=== PATIENT | female | born 1995 | race Caucasian/White ===

== ENCOUNTER 2016-07-22 08:39 | Emergency (ER) | payer OTHER ==
--- NOTE | 2016-07-22 09:59 | EDDOCDS ---
Nurse's Notes [facility] Name: Lucie Hutchinson Age: 21 yrs Sex: Female : 1995 Arrival Date: 07/22/2016 Time: 08:39 Bed Triage 1 Private MD: Diagnosis: Acute upper respiratory infection, unspecified Presentation: 07/22 08:50 Presenting complaint: Patient states: Nasal congestion, headache, sore throat, cough, dwg bilateral ear pain, symptoms started one week ago. 08:50 Acuity: YESY Level 5 dwg 08:53 Adult Sepsis Screening: The patient does not have new or worsening altered mentation. dwg Patient's respiratory rate is less than 22. Systolic blood pressure is greater than 100. Patient has a qSOFA score of 0- Negative Sepsis Screen. Suicide/Homicide risk assessment- the patient denies having any suicidal and/or homicidal ideations and does not present with any other emotional, behavioral or mental health complaints. Status: The patient is a dependent. Transition of care: patient was not received from another setting of care. 08:53 Method Of Arrival: Walkin/Carried/Asstd dwg Triage Assessment: 08:55 General: Appears in no apparent distress, uncomfortable. Pain: Pain currently is 10 out dwg of 10 on a pain scale. 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 OTC cold meds PRN (Last dose: 07/21/2016 20:00) 2. Daily BCP - PMHx: none; - PSHx: [place] tooth extraction; - Social history: Smoking status: Patient states was never smoker of tobacco. No barriers to communication noted, The patient speaks fluent German. - Family history: No immediate family members are acutely ill. - : The pt / caregiver states he / she is not on anticoagulants. Home medication list is obtained from the patient. - Exposure Risk Screening:: None identified. Screenin:29 Screening information is obtained from the patient. Fall risk: No risks identified. dwg Assistance ADL's: requires no assistance with activities of daily living. Abuse/DV Screen: The patient / caregiver reports he/she is: not in a situation that causes fear, pain or injury. Nutritional screening: No deficits noted. Advance Directives: Currently, there is no health care proxy. There is no active DNR order. There is no living will. There is no Power of Pattern Marker. Advance directive information has not previously been placed in an [facility] medical record. Further advance directive information is declined. home support is adequate. Assessment: 09:27 General: Appears in no apparent distress. Neurological: Level of Consciousness is dwg awake, alert, Oriented to person, place, time. Respiratory: Airway is patent Respiratory effort is even, unlabored, Respiratory pattern is regular, symmetrical, Breath sounds are clear bilaterally. Vital Signs: 08:41 BP 158 / 77; Pulse 126; Resp 18; Temp 97.5(O); Pulse Ox 100% on R/A; Weight 63.5 kg ct3 (R); Height 5 ft. 2 in. (157.48 cm) (R); Pain 0/10; 08:50 Pulse 104; dwg 08:41 Body Mass Index 25.61 (63.50 kg, 157.48 cm) ct3 Vitals: 08:55 Log In Time: July 22, 2016 at 08:40. dwg 09:27 Strep Screen is obtained and tested: Negative, a GATSNEG culture is ordered in [facility] and sent. ED Course: 08:41 Patient visited by Alberto Mojica, Reg. pm4 08:41 Patient moved to Waiting pm4 08:42 Patient visited by Amy Baker PCA. ct3 08:53 Triage Initiated dwg 08:57 Patient moved to Triage 1 dwg 09:01 [facility] Ph[facility] ar2 09:01 Sonali Mccann MD is Attending Physician. ar2 09:01 Patient visited by Yao Pham PA-C. ar2 09:24 [facility] Payment Agreement was scanned into [employer] and attached to record. pm4 09:25 GATS (NEGATIVE STREP SCREEN) Sent. dwg 09:58 The patient / caregiver is instructed regarding the plan of care and ED course. dwg 09:58 No IV's were initiated during this patient's visit. No procedures done that require dwg assistance. Order Results: There are currently no results for this order. Outcome: 09:39 Discharge ordered by Provider. ar2 09:58 Discharge Assessment: Patient awake, alert and oriented x 3. No cognitive and/or dwg functional deficits noted. Patient verbalized understanding of disposition instructions. patient administered narcotics - no. The following High Risk Discharge criteria are identified: None. Discharged to home ambulatory. Condition: good Condition: stable. No special radiology studies were completed. Property sent home with patient. 09:58 Patient left the ED. dwg Signatures: Jaime Bose RN RN dwg Yao Pham PA-C PAHolly ar2 Amy Baker, MIXER WET POUR MIXER WET POUR ct3 Alberto Mojica, Reg Reg pm4 MTDD
--- NOTE | 2016-07-22 09:59 | EDDOCDS ---
Physician Documentation [facility] Name: Lucie Hutchinson Age: 21 yrs Sex: Female : 1995 Arrival Date: 07/22/2016 Time: 08:39 Bed Triage 1 Private MD: Disposition: 07/22/16 09:39 Discharged to Home/Self Care. Impression: Acute upper respiratory infection, unspecified. - Condition is Stable. - Discharge Instructions: Upper Respiratory Infection, Adult. - Prescriptions for Ibuprofen 600 mg Oral Tablet - take 1 tablet by ORAL route every 6 hours As needed take with food; 30 tablet. Mucinex 600 mg - take 1 tablet by ORAL route 2 times per day; 30 tablet. benzonatate 200 mg Oral Capsule - take 1 capsule by ORAL route 3 times per day As needed; 30 capsule. Fluticasone 50 mcg/actuation Nasal [place], Suspension - inhale 2 spray by INTRANASAL route once daily; 1 bottle. - Medication Reconciliation, Local Pharmacy Hours form. - Follow up: Private Physician; When: Call to arrange an appointment; Reason: Recheck today's complaints, To establish care. Follow up: Emergency Department; When: As needed; Reason: Fever > 102F, Trouble breathing, Worsening of conditions. - Problem is new. - Symptoms are unchanged. - Notes: recommend over the counter cepachol lozenges or chloraseptic spray for sore throat Historical: - Allergies: no known allergies; - Home Meds: 1. OTC cold meds PRN (Last dose: 07/21/2016 20:00) 2. Daily BCP - PMHx: none; - PSHx: [place] tooth extraction; - Social history: Smoking status: Patient states was never smoker of tobacco. No barriers to communication noted, The patient speaks fluent Welsh. - Family history: No immediate family members are acutely ill. - : The pt / caregiver states he / she is not on anticoagulants. Home medication list is obtained from the patient. - Exposure Risk Screening:: None identified. 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 2 in. (157.48 cm) (R); Pain 0/10; 08:50 Pulse 104; dwg 08:41 Body Mass Index 25.61 (63.50 kg, 157.48 cm) ct3 MDM: 09:06 Strep Screen, Nursing ordered. ar2 09:16 Financial registration complete. pm4 09:23 GATS (NEGATIVE STREP SCREEN) Ordered. EDMS 09:24 [facility] Payment Agreement was scanned into [employer] and attached to record. pm4 Signatures: Dispatcher [employer] EDMS Jaime Bose, RN RN dwg Yao Pham, PA-Gina PA-C ar2 Alberto Mojica, Reg Reg pm4 The chart was reviewed and I authenticate all verbal orders and agree with the evaluation and treatment provided.Attachments: 09:24 [facility] Payment Agreement pm4 MTDD
--- NOTE | 2016-07-24 11:00 | EDDOCDS ---
Physician Documentation [facility] Name: Lucie Hutchinson Age: 21 yrs Sex: Female : 1995 Arrival Date: 07/22/2016 Time: 08:39 Bed Triage 1 Private MD: Disposition: 07/22/16 09:39 Discharged to Home/Self Care. Impression: Acute upper respiratory infection, unspecified. - Condition is Stable. - Discharge Instructions: Upper Respiratory Infection, Adult. - Prescriptions for Ibuprofen 600 mg Oral Tablet - take 1 tablet by ORAL route every 6 hours As needed take with food; 30 tablet. Mucinex 600 mg - take 1 tablet by ORAL route 2 times per day; 30 tablet. benzonatate 200 mg Oral Capsule - take 1 capsule by ORAL route 3 times per day As needed; 30 capsule. Fluticasone 50 mcg/actuation Nasal [place], Suspension - inhale 2 spray by INTRANASAL route once daily; 1 bottle. - Medication Reconciliation, Local Pharmacy Hours form. - Follow up: Private Physician; When: Call to arrange an appointment; Reason: Recheck today's complaints, To establish care. Follow up: Emergency Department; When: As needed; Reason: Fever > 102F, Trouble breathing, Worsening of conditions. - Problem is new. - Symptoms are unchanged. - Notes: recommend over the counter cepachol lozenges or chloraseptic spray for sore throat Historical: - Allergies: no known allergies; - Home Meds: 1. OTC cold meds PRN (Last dose: 07/21/2016 20:00) 2. Daily BCP - PMHx: none; - PSHx: [place] tooth extraction; - Social history: Smoking status: Patient states was never smoker of tobacco. No barriers to communication noted, The patient speaks fluent Syriac. - Family history: No immediate family members are acutely ill. - : The pt / caregiver states he / she is not on anticoagulants. Home medication list is obtained from the patient. - Exposure Risk Screening:: None identified. 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 2 in. (157.48 cm) (R); Pain 0/10; 08:50 Pulse 104; dwg 08:41 Body Mass Index 25.61 (63.50 kg, 157.48 cm) ct3 MDM: 09:06 Strep Screen, Nursing ordered. ar2 09:16 Financial registration complete. pm4 09:23 GATS (NEGATIVE STREP SCREEN) Ordered. EDMS 09:24 [facility] Payment Agreement was scanned into [employer] and attached to record. pm4 14:29 T-Sheet-- Draft Copy was scanned into [employer] and attached to record. gb Signatures: Dispatcher [employer] EDMS Jaime Bose, RN RN dwg Isabel Manzano, Reg Reg gb Yao Pham, PAHolly PAHolly ar2 Alberto Mojica, Reg Reg pm4 The chart was reviewed and I authenticate all verbal orders and agree with the evaluation and treatment provided.Attachments: 09:24 [facility] Payment Agreement pm4 14:29 T-Sheet-- Draft Copy gb Chart Complete MTDD
--- NOTE | 2016-07-24 11:00 | EDDOCDS ---
Physician Documentation [facility] Name: Lucie Hutchinson Age: 21 yrs Sex: Female : 1995 Arrival Date: 07/22/2016 Time: 08:39 Bed Triage 1 Private MD: Disposition: 07/22/16 09:39 Discharged to Home/Self Care. Impression: Acute upper respiratory infection, unspecified. - Condition is Stable. - Discharge Instructions: Upper Respiratory Infection, Adult. - Prescriptions for Ibuprofen 600 mg Oral Tablet - take 1 tablet by ORAL route every 6 hours As needed take with food; 30 tablet. Mucinex 600 mg - take 1 tablet by ORAL route 2 times per day; 30 tablet. benzonatate 200 mg Oral Capsule - take 1 capsule by ORAL route 3 times per day As needed; 30 capsule. Fluticasone 50 mcg/actuation Nasal [place], Suspension - inhale 2 spray by INTRANASAL route once daily; 1 bottle. - Medication Reconciliation, Local Pharmacy Hours form. - Follow up: Private Physician; When: Call to arrange an appointment; Reason: Recheck today's complaints, To establish care. Follow up: Emergency Department; When: As needed; Reason: Fever > 102F, Trouble breathing, Worsening of conditions. - Problem is new. - Symptoms are unchanged. - Notes: recommend over the counter cepachol lozenges or chloraseptic spray for sore throat Historical: - Allergies: no known allergies; - Home Meds: 1. OTC cold meds PRN (Last dose: 07/21/2016 20:00) 2. Daily BCP - PMHx: none; - PSHx: [place] tooth extraction; - Social history: Smoking status: Patient states was never smoker of tobacco. No barriers to communication noted, The patient speaks fluent Swedish. - Family history: No immediate family members are acutely ill. - : The pt / caregiver states he / she is not on anticoagulants. Home medication list is obtained from the patient. - Exposure Risk Screening:: None identified. 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 2 in. (157.48 cm) (R); Pain 0/10; 08:50 Pulse 104; dwg 08:41 Body Mass Index 25.61 (63.50 kg, 157.48 cm) ct3 MDM: 09:06 Strep Screen, Nursing ordered. ar2 09:16 Financial registration complete. pm4 09:23 GATS (NEGATIVE STREP SCREEN) Ordered. EDMS 09:24 [facility] Payment Agreement was scanned into [employer] and attached to record. pm4 14:29 T-Sheet-- Draft Copy was scanned into [employer] and attached to record. gb Signatures: Dispatcher [employer] EDMS Jaime Bose, RN RN dwg Isabel Manzano, Reg Reg gb Yao Pham, PAHolly PAHolly ar2 Alberto Mojica, Reg Reg pm4 The chart was reviewed and I authenticate all verbal orders and agree with the evaluation and treatment provided.Attachments: 09:24 [facility] Payment Agreement pm4 14:29 T-Sheet-- Draft Copy gb Chart Complete MTDD
--- NOTE | 2016-07-24 11:00 | EDDOCDS ---
Nurse's Notes [facility] Name: Lucie Hutchinson Age: 21 yrs Sex: Female : 1995 Arrival Date: 07/22/2016 Time: 08:39 Bed Triage 1 Private MD: Diagnosis: Acute upper respiratory infection, unspecified Presentation: 07/22 08:50 Presenting complaint: Patient states: Nasal congestion, headache, sore throat, cough, dwg bilateral ear pain, symptoms started one week ago. 08:50 Acuity: YESY Level 5 dwg 08:53 Adult Sepsis Screening: The patient does not have new or worsening altered mentation. dwg Patient's respiratory rate is less than 22. Systolic blood pressure is greater than 100. Patient has a qSOFA score of 0- Negative Sepsis Screen. Suicide/Homicide risk assessment- the patient denies having any suicidal and/or homicidal ideations and does not present with any other emotional, behavioral or mental health complaints. Status: The patient is a dependent. Transition of care: patient was not received from another setting of care. 08:53 Method Of Arrival: Walkin/Carried/Asstd dwg Triage Assessment: 08:55 General: Appears in no apparent distress, uncomfortable. Pain: Pain currently is 10 out dwg of 10 on a pain scale. 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 OTC cold meds PRN (Last dose: 07/21/2016 20:00) 2. Daily BCP - PMHx: none; - PSHx: [place] tooth extraction; - Social history: Smoking status: Patient states was never smoker of tobacco. No barriers to communication noted, The patient speaks fluent Mongolian. - Family history: No immediate family members are acutely ill. - : The pt / caregiver states he / she is not on anticoagulants. Home medication list is obtained from the patient. - Exposure Risk Screening:: None identified. Screenin:29 Screening information is obtained from the patient. Fall risk: No risks identified. dwg Assistance ADL's: requires no assistance with activities of daily living. Abuse/DV Screen: The patient / caregiver reports he/she is: not in a situation that causes fear, pain or injury. Nutritional screening: No deficits noted. Advance Directives: Currently, there is no health care proxy. There is no active DNR order. There is no living will. There is no Power of Ladle Patcher. Advance directive information has not previously been placed in an [facility] medical record. Further advance directive information is declined. home support is adequate. Assessment: 09:27 General: Appears in no apparent distress. Neurological: Level of Consciousness is dwg awake, alert, Oriented to person, place, time. Respiratory: Airway is patent Respiratory effort is even, unlabored, Respiratory pattern is regular, symmetrical, Breath sounds are clear bilaterally. Vital Signs: 08:41 BP 158 / 77; Pulse 126; Resp 18; Temp 97.5(O); Pulse Ox 100% on R/A; Weight 63.5 kg ct3 (R); Height 5 ft. 2 in. (157.48 cm) (R); Pain 0/10; 08:50 Pulse 104; dwg 08:41 Body Mass Index 25.61 (63.50 kg, 157.48 cm) ct3 Vitals: 08:55 Log In Time: July 22, 2016 at 08:40. dwg 09:27 Strep Screen is obtained and tested: Negative, a GATSNEG culture [facility] and sent. ED Course: 08:41 Patient visited by Alberto Mojica, Reg. pm4 08:41 Patient moved to Waiting pm4 08:42 Patient visited by Amy Baker PCA. ct3 08:53 Triage Initiated dwg 08:57 Patient moved to Triage 1 dwg 09:01 Yao Pham [facility]. ar2 09:01 Sonali Mccann MD is Attending Physician. ar2 09:01 Patient visited by Yao Pham PA-C. ar2 09:24 [facility] Payment Agreement was scanned into [employer] and attached to record. pm4 09:25 GATS (NEGATIVE STREP SCREEN) Sent. dwg 09:58 The patient / caregiver is instructed regarding the plan of care and ED course. dwg 09:58 No IV's were initiated during this patient's visit. No procedures done that require dwg assistance. 14:29 T-Sheet-- Draft Copy was scanned into [employer] and attached to record. gb Order Results: Lab Order: GATS (NEGATIVE STREP SCREEN); SPEC'M 07/22/16 08:39 Test: GATS CULTURE (NEG STREP SCR); Value: GATS RESULT NEGATIVE FOR STREP PYOGENES (GROUP A); Status: F Outcome: 09:39 Discharge ordered by Provider. ar2 09:58 Discharge Assessment: Patient awake, alert and oriented x 3. No cognitive and/or dwg functional deficits noted. Patient verbalized understanding of disposition instructions. patient administered narcotics - no. The following High Risk Discharge criteria are identified: None. Discharged to home ambulatory. Condition: good Condition: stable. No special radiology studies were completed. Property sent home with patient. 09:58 Patient left the ED. dwg Signatures: Jaime Bose RN RN dwg Isabel Manzano, Reg Reg gb Yao Pham PA-C PA-C ar2 Amy Baker, RELEASE ENGINEER RELEASE ENGINEER ct3 Alberto Mojica, Reg Reg pm4 Chart Complete MTDD
== END 2016-07-22 09:58 | disposition home or self-care (01) ==
LOC: M ED 08:39
DX: J06.9 Acute upper respiratory infection, unspecified (principal); Z79.3 Long term (current) use of hormonal contraceptives

== ENCOUNTER → 2018-12-31 | Outpatient (REF) | payer OTHER ==
[2018-12-31 22:32] LABS: CHLAMYDIA DNA AMPLIFICATION NEGATIVE (NEGATIVE); GC DNA AMPLIFICATION NEGATIVE (NEGATIVE)
== END ==
LOC: M LAB REF 18:55
PROVIDERS: ATTEND Physician Assistant
DX: R30.0 Dysuria (principal)